=== PATIENT | female | born 1990 | race Caucasian/White ===

== ENCOUNTER → 2016-10-30 | Outpatient (CLI) | payer OTHER ==
[2016-10-30 11:26] LABS: FREE T4 (FREE THYROXINE) 1.14 ng/dL (0.93-1.71)
== END ==
LOC: MOB LAB 10:05
PROVIDERS: ATTEND Nurse Practitioner Family
DX: R53.83 Other fatigue (principal); N92.1 Excessive and frequent menstruation with irregular cycle
CPT/HCPCS: 36415; 84439; 84443; 84481

== ENCOUNTER → 2016-10-31 | Outpatient (CLI) | payer OTHER ==
--- NOTE | 2016-10-31 17:19 | DI ---
RIGHT BREAST ULTRASOUND, 10/31/2016 2:50 PM: Clinical History: Painful lumpy right breast. Scans are performed by the technologist and myself through all four quadrants of the right breast wit h the high resolution linear array probe. Scans were also performed in the right axilla where the pat ient indicated her provider identified a lump. However, the patient could not localize this area for us to scan. Scans reveal no solid or cystic mass. Specifically, no lesion is seen in the upper outer quadrant whe re the patient indicated she noted a lump. The area that she localized represents fibroglandular gary st tissue. Limited scans through the right axilla show no adenopathy or mass. Follow Up: The patient was advised to perform monthly self breast examinations to monitor the lesion over the next 2 - 3 months. She was instructed to contact her health care provider promptly if the haylie mp becomes larger during that time. Otherwise, if the lump disappears or remains stable, she was advi sed to have a follow-up breast clinical examination with her health care provider in approximately 2 - 3 months to verify those findings of the patient. If at the time of the breast clinical examination there is still clinical concern regarding this lesion, then a diagnostic right mammogram with possib le surgical consultation would be recommended. BIRADS Category: 1. Negative exam. No abnormality is detected either in the breast itself or in the a xilla. Reading: Negative.
== END ==
LOC: US 14:46
PROVIDERS: ATTEND Nurse Practitioner Family
DX: N64.4 Mastodynia (principal)
CPT/HCPCS: 76641

== ENCOUNTER → 2016-11-02 | Outpatient (CLI) | payer OTHER ==
--- NOTE | 2016-11-02 11:58 | DI ---
MR ANGIOGRAPHY OF THE [place] [facility] [place], 11/02/2016 9:09 AM: Clinical History: Probably headaches. Previous Exam: None at this facility. High resolution axial 3D thin slice time of flight scans are performed for the arterial phase. 3D MIP S reconstructions are obtained. The left vertebral artery is dominant. There is no basilar tip aneurysm or aneurysm arising from the vertebral-basilar branches. Both posterior communicating arteries are normal. The anterior communicat ing artery is normal, and there is absence of the left A1 segment. The right A1and both A2, and the M 1 through M3 branches bilaterally are normal. Reading: Normal MR angiogram scan of the [place] [facility] [place]. 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
--- NOTE | 2016-11-02 12:11 | DI ---
MRI BRAIN SCAN WITHOUT CONTRAST, 11/02/2016 9:09 AM: Clinical History: Throbbing headaches. Previous Exam: None at this facility. Sequences: Sagittal T1; Axial ANA T2 and FLAIR. Axial diffusion weighted images with ADC mapping were also performed. The 4th, 3rd, and lateral ventricles are of normal size, shape, position, and contour for this patien t's age. There are no focal areas of abnormally increased or decreased signal intensity. Diffusion we ighted imaging with ADC mapping is normal. There are no extracerebral mantels or shift of the midline structures. The paranasal sinuses are normal. Readin. Normal noncontrast MRI brain scan. 2. Diffusion weighted imaging with ADC mapping is normal.
== END ==
LOC: MRI 09:02
PROVIDERS: ATTEND Nurse Practitioner Family
DX: R51 Headache (principal)
CPT/HCPCS: 70544; 70551

== ENCOUNTER → 2017-04-24 | Outpatient (CLI) | payer OTHER | LOC: MOB LAB 08:24 | PROVIDERS: ATTEND Physician Assistant | DX: R22.0 Localized swelling, mass and lump, head (principal); K11.20 Sialoadenitis, unspecified | CPT/HCPCS: 36415; 86735 ==

== ENCOUNTER 2017-05-03 06:24 | Day surgery (SDC) | payer OTHER ==
[~2017-05-03 06:24] MED LIST: LIDOCAINE W/ SODIUM BICARB 0.5 ML SYR ONE; Lactated Ringers 2,000 ML PRIMARY IV ONE; Sodium Chloride 0.9% 100 ML IV ONE
[2017-05-03] MEDS ORDERED: Acetaminophen 1000mg Inj 1,000 MG in Premix 1 BAG IV ONE (06:39)
[2017-05-03 06:40] LABS: BILIRUBIN,URINE NEGATIVE (NEG); CLARITY,URINE CLEAR (CLEAR); COLOR,URINE YELLOW; GLUCOSE, URINE (UA) NEGATIVE (NEG); NITRATE,URINE NEGATIVE (NEG); PH,URINE 5.5 (5.0-8.5); PROTEIN,URINE NEGATIVE (NEG); UROBILINOGEN,URINE 0.2 EU/dL (0.2)
[2017-05-03] MEDS ORDERED: fentaNYL Inj 100 MCG/2 ML VIAL IVP PRN (06:40)
[2017-05-03] MEDS ORDERED: HYDROmorphone 2 MG/1 ML IVP PRN (06:40)
[2017-05-03] MEDS ORDERED: SCOPOLAMINE HYDROBROMIDE 1.5 MG - 1 EACH PATCH TRANSDERM ONE ×2 (06:40→06:44)
[2017-05-03] MEDS ORDERED: NORMAL SALINE 10 ML SYRINGE FLUSH IVP PRN ×2 (06:40→09:19)
[2017-05-03] MEDS ORDERED: Prochlorperazine Edisylate Inj 10mg/2ml vial IVP PRN (06:40)
[2017-05-03] MEDS ORDERED: ATROPINE SULFATE 0.4 MG/1 ML VIAL IVP PRN (06:40)
[2017-05-03] MEDS ORDERED: Ondansetron ODT Tab 8 MG TAB PO PRN ×2 (06:40→09:19)
[2017-05-03] MEDS ORDERED: ONDANSETRON 4 MG/2 ML VIAL IVP PRN (06:40)
[2017-05-03 06:42] LABS: OCCULT BLOOD,URINE TRACE (NEG)
[2017-05-03 06:43] LABS: RBC,URINE RARE /hpf; SQUAMOUS EPITHELIAL CELL,UR RARE; URINE SAMPLE TYPE CLEAN CATCH URINE; URINE SPECIFIC GRAVITY - MAN 1.015
[2017-05-03] MEDS ORDERED: Acetaminophen 1000mg Inj 100 ML IV ONE (06:44)
[2017-05-03] MEDS ORDERED: Lactated Ringers 1,000 ML PRIMARY IV SCH (06:45)
[2017-05-03] MEDS ORDERED: BUPIVACAINE 0.25% W/ EPI - 10 ML VIAL ONE (06:49)
[2017-05-03] MEDS ORDERED: LIDOCAINE HCL 2 % 10 ML JELLY URO-JECT TOPICAL ONE (06:50)
[2017-05-03 06:52] LABS: HEMATOCRIT 36.9 % (37.0-47.0); HEMOGLOBIN 13.2 g/dL (12.0-16.0)
[2017-05-03] MEDS ORDERED: MIDAZOLAM 5 MG/1 ML ONE (07:00)
[2017-05-03] MEDS ORDERED: SUFENTANIL 50 MCG/1 ML ONE (07:00)
[2017-05-03] MEDS ORDERED: Sodium Chloride 0.9% vial 10 ML ONE (07:01)
[2017-05-03] MEDS ORDERED: LIDOCAINE MPF 2% - 5 ML (20 MG/1 ML) ONE (07:01)
[2017-05-03] MEDS ORDERED: ROCURONIUM 10 MG/1 ML - 5 ML VIAL IVP ONE (07:03)
[2017-05-03] MEDS ORDERED: Opium-Belladonna 30-16.2mg 1 EACH SUPP.RECT RECTAL ONE (08:24)
[2017-05-03] MEDS ORDERED: KETOROLAC 30 MG/1 ML VIAL ONE (08:36)
[2017-05-03] MEDS ORDERED: DEXAMETHASONE PF 10 MG/1 ML VIAL ONE (08:36)
[2017-05-03] MEDS ORDERED: ONDANSETRON 4 MG/2 ML VIAL ONE (08:36)
[2017-05-03] MEDS ORDERED: IBUPROFEN 800 MG TABLET PO PRN (09:19)
[2017-05-03] MEDS ORDERED: KETOROLAC 15 MG/1 ML VIAL IVP PRN (09:19)
[2017-05-03] MEDS ORDERED: SUGAMMADEX SODIUM 200 MG/2 ML VIAL IV ONE (09:22)
--- NOTE | 2017-05-03 09:23 | OB.OP.NOTE ---
Operative Report Surgeon: Kiera Certified Nurse Aide: Hunter Torres MD Anesthesia Type: General Anesthesia Provider: Cristina Storm CRNA Surgery Date: 05/03/17 Preoperative Diagnosis: MMR/Fibroid Uterus Postoperative Diagnosis: Same Procedure: da Shaq Hysterectomy/Bilateral Salpingectomy/Cystoscopy Estimated Blood Loss (mL): 125 Fluids: 2300 ml Complications: None Findings at Surgery: Retroverted uterus with posterior LACEY fibroid. Normal ovaries. Tubes s/p BTL. No visible evidence of bowel, bladder or ureter injury. At cysto, both ureters were visualized ejecting urine and the bladder was intact. Indications for the Procedure: MMR/Fibroid Description of Procedure: See dictated operative report. Plan: Routine post op care and discharge to home.
[2017-05-03] MEDS ORDERED: BUTORPHANOL TARTRATE 2 MG/1 ML VIAL ONE (10:04)
[2017-05-03] MEDS ORDERED: BUTORPHANOL TARTRATE 2 MG/1 ML VIAL IVP ONE (10:10)
[2017-05-03 10:45] VITALS: RESP 12
[2017-05-03] MEDS ORDERED: oxyCODONE-ACETAMINOPHEN 5-325 TAB PO ONE ×2 (11:10→11:58)
[2017-05-03] MEDS: oxyCODONE-ACETAMINOPHEN 5-325 TAB PO PRN ×2 (11:15→11:50)
[2017-05-03 14:31] VITALS: TEMP 97.5
[2017-05-03] MEDS ORDERED: DOCUSATE 100 MG CAPSULE PO SCH (21:00)
== END 2017-05-03 14:20 | disposition home or self-care (01) ==
LOC: SDSC 06:24
PROVIDERS: ATTEND Obstetrics & Gynecology
DX: N92.0 Excessive and frequent menstruation with regular cycle (principal); D25.9 Leiomyoma of uterus, unspecified
CPT/HCPCS: 58552; 81001; 84703; 85014; 85018; A4216; J0131; J0595; J0694; J1100; J1885; J2001; J2250; J2405; J2704; J7050; J7120